=== PATIENT | female | born 1975 | race Caucasian/White ===

== ENCOUNTER 2025-02-26 15:16 | Emergency (ER) | payer BC ==
[~2025-02-26] VITALS: Ht 162.6 cm; Wt 68.0 kg
[2025-02-26 15:23] VITALS: O2SAT 98
[2025-02-26 15:31] VITALS: BP 114/85; PULSE 77; RESP 17; TEMP 36.6; O2SAT 98
[2025-02-26] MEDS ORDERED: FLUC200T51 MT (17:08)
[2025-02-26] MEDS ORDERED: METR70GE27 VG (17:08)
[2025-02-26] MEDS ORDERED: NYST15CR31 TP (17:08)
[2025-02-28 19:09] LABS: CHLAMYDIA TRACHOMATIS NAA Negative (Negative); NEISSERIA GONORRHOEAE NAA Negative (Negative)
== END 2025-02-26 17:47 | disposition home or self-care (01) ==
LOC: ER 15:16
DX: N76.0 Acute vaginitis (principal); L30.9 Dermatitis, unspecified; Z90.710 Acquired absence of both cervix and uterus; Z79.899 Other long term (current) drug therapy
CPT/HCPCS: 81025; 87491; 87591; 99283; 99284